=== PATIENT | male | born 1980 | race Caucasian/White ===

== ENCOUNTER 2024-07-25 06:19 | Day surgery (SDC) | payer BC, SELFPAY ==
[2024-07-20 16:09] VITALS: BMI 31.4
[2024-07-25 06:42] VITALS: BP 145/75; PULSE 54; RESP 17; TEMP 36.9; O2SAT 99
[2024-07-25] MEDS: LACTATED RINGERS 1000ML 1,000 ML 50 ML IV (06:53)
--- NOTE | 2024-07-25 07:16 | EXP.HP ---
History of Present Illness *Admission Date: 07/25/24 *Reason for visit:: Dysphagia *History of present illness: Mr. Hoang is a 44-year-old gentleman who is here to reestablish and is a longstanding [place] patient. He is here to discuss recurrent dysphagia. The patient did have panendoscopy with me in April 2023. At that time he had esophageal dilation and I do not have the reports just yet. He does state that at that time I had not seen any Schatzki's ring or eosinophilic esophagitis. In the past he did have some EOE. The patient is on omeprazole which helps to control his GERD. He does not have any breakthrough GERD. He also had a colonoscopy in April 2023 and had a benign polyp (tubular adenoma) removed. The patient reports no heartburn, bloating, belching or gassiness. He reports no abdominal pain. His dysphagia is primarily to solid foods and not liquids. This occurs with breads, meats and starchy foods. He has not had to have regurgitation and has had no food impaction but he does have to drink copious liquids for his food to go down and this occurs daily with most meals. The patient also takes psyllium Konsyl daily which has helped improve bowel function. [facility] Disclaimer: The information contained in this section may have been updated after the patient was seen, as this information can be updated by other users. Medical History (Updated 07/25/24 @ 07:28 by Juanjose Greer II, MD) Hyperlipidemia Hypertension GERD (gastroesophageal reflux disease) Anxiety Benign essential tremor syndrome Asthma Gastritis Surgical History (Updated 07/20/24 @ 16:07 by Melba Camacho RN) History of vasectomy H/O adenoidectomy Family History Father Colon cancer Mother History of bowel resection Colon cancer Mother Colon cancer Other Family history of diabetes mellitus type II Family history of hypertension Social History Smoking Status: Never smoker alcohol intake: never substance use type: denies use current occupational status: employed Travel in the last 8 weeks?: None caffeine: Yes Have you lived/traveled outside [place] in past 30 days?: No Contact w/someone who lives/traveled outside US past 30 days?: No Exposure to someone with infectious disease in past 14 days?: No Do you have a fever (greater than 100.4 F or 38 C)?: No Have you tested positive for COVID-19?: No Exposed to someone with COVID-19 in past 14 days?: No Do you have a sore throat?: No Do you have a cough?: No Do you have any weakness?: No Are you experiencing any nausea/vomitting?: No Do you have any diarrhea?: No Are you experiencing any unusual bleeding?: No Do you have any muscle aches/pain?: No Do you have any abdominal pain?: No Are you experiencing loss of taste or smell?: No Review of Systems Review of Systems Review of systems (narrative): Negative *Cardiovascular Comments: Negative *Gastrointestinal Comments: Negative *Genitourinary Comments: Negative *Musculoskeletal Comments: Negative *Neurologic Comments: Negative Meds Home Medications and Allergies Home Medications ?Medication ?Instructions ?Recorded ?Confirmed ?Type albuterol sulfate 90 mcg/actuation 1 inh inhalation Q4-6H PRN Asthma 06/07/24 07/25/24 History breath activated powder inhaler (ProAir RespiClick) atorvastatin 40 mg tablet 40 mg PO DAILY 06/07/24 07/25/24 History omeprazole 40 mg capsule,delayed 40 mg PO DAILY 06/07/24 07/25/24 History release propranolol 80 mg capsule,24 80 mg PO ONCE 06/07/24 07/25/24 History hr,extended release New Prescriptions to Start Prescriptions: Allergies Allergy/AdvReac Type Severity Reaction Status Date / Time No Known Allergies Allergy Verified 07/25/24 06:43 Exam Data for Last 24 hours Vital signs and Labs for Last 24 Hours: Temp Pulse Resp BP Pulse Ox O2 Del Method 98.4 F 54 L 17 145/75 H 99 Room Air 07/25/24 06:42 07/25/24 06:42 07/25/24 06:42 07/25/24 06:42 07/25/24 06:42 07/25/24 06:42 *Routine HEENT Exam Head: Present normocephalic Eye: Present EOMI and PERRL ENT: Present mucous membranes moist *Routine Neck Exam Neck: Present supple *Routine Respiratory Exam Respiratory: Present CTA bilaterally *Routine Cardiovascular Exam Cardiovascular: Present RRR *Routine Abdominal Exam Abdominal: Present soft and normoactive bowel sounds; Absent tenderness *Routine Rectal Exam Rectal:: deferred *Routine Genitalia Exam Genitalia:: deferred *Routine Extremities Exam Extremities: Absent cyanosis, clubbing or edema *Routine Skin Exam Skin: Present warm; Absent rash *Routine Neurological Exam Neurological: Present alert and oriented X3 Assessment and Plan *Assessment and plan (1) Dysphagia: Status: Acute Category: Medical Code(s): R13.10 - Dysphagia, unspecified (2) Benign esophageal stricture: Status: Acute Category: Medical Code(s): K22.2 - Esophageal obstruction Plan A/P: 1. Dysphagia with prior history of esophageal stricture is the preprocedural diagnosis. The patient will be anesthetized/sedated using MAC sedation. The patient has been seen and examined. Cardiac and lung assessment prior to the examination is stable. Proceed with planned diagnostic/therapeutic EGD.
[2024-07-25 07:29] VITALS: O2SAT 99
--- NOTE | 2024-07-25 07:30 | HMH.PROCNOTE ---
[facility] Procedure Note Date: 07/25/24 Time: 07:40 Procedure Note:: Upper Endoscopy Procedure Report: Esophagogastroduodenoscopy with cold biopsies and TTS balloon dilation Endoscopost: Juanjose Greer II, MD Referring Physician: Alyssia Alcaraz MD [facility], [address] [place] [address] Date of Procedure: July 25, 2024 Equipment: Olympus GIF 190 standard upper endoscope Sedation: MAC sedation Indications: Mr. Hoang is a 44-year-old gentleman who is here to reestablish and is a longstanding [place] patient. He is here to discuss recurrent dysphagia. The patient did have panendoscopy with me in April 2023. At that time he had esophageal dilation and I do not have the reports just yet. He does state that at that time I had not seen any Schatzki's ring or eosinophilic esophagitis. In the past he did have some EOE. The patient is on omeprazole which helps to control his GERD. He does not have any breakthrough GERD. He also had a colonoscopy in April 2023 and had a benign polyp (tubular adenoma) removed. The patient reports no heartburn, bloating, belching or gassiness. He reports no abdominal pain. His dysphagia is primarily to solid foods and not liquids. This occurs with breads, meats and starchy foods. He has not had to have regurgitation and has had no food impaction but he does have to drink copious liquids for his food to go down and this occurs daily with most meals. The patient also takes psyllium Konsyl daily which has helped improve bowel function. Procedure: Prior to the procedure, a history and physical exam was performed, and patient's medications and allergies were reviewed. The risks, benefits and alternatives of the sedation and procedure were discussed with the patient. All questions were answered and informed consent was obtained. The patient was brought to the procedure room. Patient identification and proposed procedure were verified by the physician and the nurse. The patient was placed in a left lateral decubitus position and the scope was passed under direct vision. Throughout the procedure, the patient's blood pressure, pulse, and oxygen saturations were monitored continuously. The upper GI endoscopy was accomplished without difficulty. The patient tolerated the procedure well. Findings: The scope was passed directly into the upper esophagus and advanced to the fourth portion of duodenum and proximal jejunum. Cold biopsies were taken from the proximal jejunum x 4 for disaccharidase assay. The jejunum post bulbar duodenum and duodenal bulb were normal with normal mucosa and conniventes. There was mild duodenal lymphoid stasis. The scope was withdrawn through a normal duodenal bulb and pylorus into the stomach. There was mild reactive gastropathy of the antrum. There was some retained digestive solid food content in the fundus with mild bile reflux. Upon retroflexion there was no hiatal hernia. The scope was then withdrawn into the esophagus. There was no Schatzki's ring, stricture, corrugation or furrowing. Cold biopsies were taken from the distal and proximal esophagus to rule out eosinophilic esophagitis. There were tertiary contractions and evidence of moderate esophageal dysmotility. The entire esophagus was dilated to 60 Czech/20 mm with a TTS hydrostatic balloon. There was mild resistance at the cricopharyngeus. The remainder of the esophageal mucosa was normal. Impression: 1. Nonerosive GERD with moderate esophageal dysmotility and cricopharyngeal spasm status post dilation to 20 mm 2. Mild antral linear reactive gastropathy and mild gastric dysmotility Plan: I will follow-up the biopsies and disaccharidase assay. I will discuss the findings with the patient and family.
[2024-07-25 07:49] VITALS: BP 118/73; PULSE 63; RESP 16; TEMP 36.2; O2SAT 96
[2024-07-25 07:59] VITALS: BP 110/71; PULSE 61; RESP 16; O2SAT 98
[2024-07-25 08:09] VITALS: BP 113/69; PULSE 84; RESP 18; O2SAT 98
[2024-07-25 08:19] VITALS: BP 105/68; PULSE 70; RESP 18; O2SAT 99
--- NOTE | 2024-07-25 08:19 | EXP.ANES.CKL ---
[facility] Disclaimer: The information contained in this section may have been updated after the patient was seen, as this information can be updated by other users. Medical History (Updated 07/25/24 @ 07:28 by Juanjose Greer II, MD) Hyperlipidemia Hypertension GERD (gastroesophageal reflux disease) Anxiety Benign essential tremor syndrome Asthma Gastritis Surgical History (Updated 07/20/24 @ 16:07 by Melba Camacho RN) History of vasectomy H/O adenoidectomy Family History Father Colon cancer Mother History of bowel resection Colon cancer Mother Colon cancer Other Family history of diabetes mellitus type II Family history of hypertension Social History Smoking Status: Never smoker alcohol intake: never substance use type: denies use current occupational status: employed Travel in the last 8 weeks?: None caffeine: Yes Have you lived/traveled outside [place] in past 30 days?: No Contact w/someone who lives/traveled outside US past 30 days?: No Exposure to someone with infectious disease in past 14 days?: No Do you have a fever (greater than 100.4 F or 38 C)?: No Have you tested positive for COVID-19?: No Exposed to someone with COVID-19 in past 14 days?: No Do you have a sore throat?: No Do you have a cough?: No Do you have any weakness?: No Are you experiencing any nausea/vomitting?: No Do you have any diarrhea?: No Are you experiencing any unusual bleeding?: No Do you have any muscle aches/pain?: No Do you have any abdominal pain?: No Are you experiencing loss of taste or smell?: No [facility] Anesthesia Checklist Patient Identification Patient Identification: Verbal (Name & ) Structural Data Admitted From: Home Planned Operative Procedure/s: egd Consent for Planned Operative Procedure(s) Verified: Yes NPO Status Verified Time NPO: 00:00 Airway Assessment Mallampati Score:: Class II C-Spine Mobility Assessed: Yes TMJ Mobility Assessed: Yes Dentition: Good Dentition Neurological Assessment Level of Consciousness: Awake, Alert and Appropriate Anesthesia Plan Anesthesia Risk discussed: Yes Anesthesia Plan: Verified ASA Class: II Anesthesia Type: MAC
[2024-07-29 16:05] LABS: Disclaimer Notes (.); Interpretation Notes (.); Lactase 49.32 (>/= 14.0); Maltase 273.6 (>/= 110.0); Palatinase 18.97 (>/= 8.5); Reference Notes (.); Sucrase 83.07 (>/= 25.0)
== END 2024-07-25 08:22 | disposition home or self-care (01) ==
PROVIDERS: PCP Family Medicine; Visit Provider Internal Medicine Gastroenterology
PROC: 0DJ08ZZ Inspection of Upper Intestinal Tract, Via Natural or Artificial Opening Endoscopic (ICD-10-PCS; CPT 43239; principal; 2024-07-25 07:30)
DX: R13.10 Dysphagia, unspecified (principal); K21.9 Gastro-esophageal reflux disease without esophagitis; K31.5 Obstruction of duodenum; K31.9 Disease of stomach and duodenum, unspecified; K22.4 Dyskinesia of esophagus; K31.84 Gastroparesis; J39.2 Other diseases of pharynx
CPT/HCPCS: 43239; 43249; 82657; C1726; J7120